=== PATIENT | male | born 1960 | race African-American/Black ===

== ENCOUNTER 2016-08-29 17:08 | Emergency (ER) | payer SELFPAY ==
[2016-08-29] MEDS ORDERED: LIPITOR PO (17:17)
[2016-08-29] MEDS ORDERED: LISINOPRIL (17:18)
[2016-08-29] MEDS ORDERED: WATER PILL (17:18)
[2016-08-29] MEDS ORDERED: INDOMETHACIN25 MG (17:19)
== END 2016-08-29 18:13 | disposition home or self-care (01) ==
LOC: SED 17:08
DX: M10.9 Gout, unspecified (principal); M25.561 Pain in right knee; Z79.899 Other long term (current) drug therapy
CPT/HCPCS: 96372; 99283; J1885